=== PATIENT | female | born 1935 | race Caucasian/White ===

== ENCOUNTER 2022-12-22 07:37 | Emergency (ER) | payer OTHER, MEDICAID ==
[~2022-12-22] VITALS: Ht 157.5 cm; Wt 52.6 kg
[2022-12-22 07:58] VITALS: BP 152/77; PULSE 68; RESP 16; TEMP 98.5; O2SAT 100
[2022-12-22] MEDS ORDERED: MELA5TAB19 MT ×2 (08:37)
[2022-12-22] MEDS ORDERED: MELA1TAB51 MT (08:38)
== END 2022-12-22 09:37 | disposition home or self-care (01) ==
LOC: ER 07:37
DX: G47.00 Insomnia, unspecified (principal); Z90.49 Acquired absence of other specified parts of digestive tract; Z88.0 Allergy status to penicillin
CPT/HCPCS: 99282